=== PATIENT | female | born 1960 | race African-American/Black ===

== ENCOUNTER 2017-12-09 01:36 | Emergency (ER) | payer MEDICAID ==
[~2017-12-09] VITALS: Ht 170.2 cm; Wt 113.0 kg
[2017-12-09 01:39] VITALS: BP 156/90
== END 2017-12-09 08:07 | disposition left against medical advice (07) ==
LOC: ER 01:36
DX: R07.9 Chest pain, unspecified (principal); Z53.21 Procedure and treatment not carried out due to patient leaving prior to being seen by health care provider
CPT/HCPCS: 93005